=== PATIENT | male | born 1950 | race Caucasian/White ===

== ENCOUNTER 2018-10-31 09:29 | Day surgery (SDC) | payer MEDICARE, BC ==
[2018-10-27 16:06] VITALS: BMI 32.3
[~2018-10-31 09:29] MED LIST: LACTATED RINGERS 1,000 ML IV SCH; LIDOCAINE 1% 20 ML VIAL (10MG/ML) FOR IV START INTRADERMA PRN; MIDAZOLAM (PF) 2 MG/2 ML VIAL IV PRN
[2018-10-31 09:53] VITALS: RESP 16; TEMP 98.9
[2018-10-31 10:08] LABS: Glucose,Whole Blood 156 mg/dL (75-99)
[2018-10-31] MEDS ORDERED: PROPOFOL 10 MG/ML 20 ML VIAL IV ONE (10:46)
--- NOTE | 2018-10-31 11:18 | P.OP ---
Date of Procedure: 10/31/18 Preoperative Diagnosis: Screening Postoperative Diagnosis: Diverticulosis Colon polyps Procedure(s) Performed: Colonoscopy with snare polypectomy Surgeon: Ahsan Richardson Pathology: other (Colon polyps) Condition: stable Disposition: same day Indications for Procedure: Patient presents for colon cancer screening. He was explained risks, benefits and alternatives prior to attending the endoscopy suite. Operative Findings: Diverticulosis of sigmoid colon Colon polyp of the transverse colon and colon polyp of the descending colon Description of Procedure: The patient was brought into the endoscopy suite and placed in the left lateral decubitus position. Adequate sedation was achieved using conscious sedation. A digital rectal exam was performed, and mild internal hemorrhoids were palpated. An endoscope was in place in the rectum and advanced to the level of the cecum as identified by landmarks, including the appendiceal orifice and the ileocecal valve. The prep was good. The colon scope was then slowly withdrawn, examining for any mucosal abdomen pelvis. The cecum, ascending, transverse, descending and sigmoidal colon were visualized adequately. There were no inflammatory lesions noted throughout the colon. There were no obvious neoplastic lesions noted throughout the colon. There was notable colon polyps. There was a polyp noted in the transverse colon. Snare polypectomy was performed and the polyp was removed in its entirety and hemostasis was maintained. An additional polyp was noted in the descending colon. This was removed with snare polypectomy in its entirety. Hemostasis was maintained. There was also notable diverticulosis in the sigmoid colon. Retroflexion was performed in the rectum and internal hemorrhages were visible. Excess air was removed. The colonoscope was withdrawn and the procedure terminated. The patient was then transferred to post incision carried in stable condition. Repeat colonoscopy in 5 years.
[2018-10-31 11:33] VITALS: BP 162/80; PULSE 81
== END 2018-10-31 11:54 | disposition home or self-care (01) ==
LOC: ORWHC2ENDO 09:29
PROVIDERS: ATTEND Surgery
DX: Z12.11 Encounter for screening for malignant neoplasm of colon (principal); K63.5 Polyp of colon; K57.30 Diverticulosis of large intestine without perforation or abscess without bleeding; K64.8 Other hemorrhoids; M19.90 Unspecified osteoarthritis, unspecified site; E11.9 Type 2 diabetes mellitus without complications; I10 Essential (primary) hypertension; E78.5 Hyperlipidemia, unspecified; Z83.3 Family history of diabetes mellitus; Z87.891 Personal history of nicotine dependence; Z79.82 Long term (current) use of aspirin; Z79.899 Other long term (current) drug therapy; Z79.84 Long term (current) use of oral hypoglycemic drugs
CPT/HCPCS: 88305; 45385; J2704

== ENCOUNTER → 2023-02-02 | Outpatient (CLI) | payer MEDICARE ==
--- NOTE | 2023-02-04 20:33 | MR ---
EXAMINATION TYPE: MR Prostate wo/w con DATE OF EXAM: 02/02/2023 11:14 AM COMPARISON: None. CLINICAL INDICATION:Male, 72 years old with history of C61; TECHNIQUE: Multi-planar, multi-sequence imaging of the pelvis is performed prior to and following the uncomplicated administration of bolus intravenous gadolinium. CONTRAST: 9 Gadavist Interpretive Criteria: PI-RADS v2.1 SERUM PSA: 4.3 on 12/17/2022. 3.9 on 06/02/2022. SURGICAL PATHOLOGY: 02/01/2022 Positive biopsy involving the right lateral base. [place] 3+3 total 6 FINDINGS: Prostatic dimensions: 5.7 x 5.4 x 4.2 cm. Ellipsoid Volume:67.69 (PSA density=0.06 ng/mL/mL) CENTRAL GLAND (Central and Transition Zones/CZ+TZ): Left central gland area of low T2/high DWI/low ADC signal measuring 7 mm. There is arterial phase enh ancement of this region. PI-RADS 4 Hypertrophic nodules are seen within the central gland. PERIPHERAL ZONE (PZ): Left lateral peripheral zone focus of high DWI low ADC or T2 signal measuring 9 mm There is arterial phase enhancement of this region. PI-RADS 4. SEMINAL VESICLES (SV): Symmetric and unremarkable. PERIPROSTATIC TISSUES: Unremarkable. LYMPH NODES: No enlarged pelvic lymph node. REMAINING PELVIS: Trabeculated bladder wall likely secondary to chronic bladder outlet obstruction. No abnormal free or organized intrapelvic fluid collection. No pathologic bowel dilation or mural thickening. OSSEOUS STRUCTURES: No suspicious osseous abnormality. IMPRESSION: 1. PI-RADS 4 lesion left posterior lateral mid gland peripheral zone measuring 9 mm. 2. PI-RADS 4 lesion left central gland base/mid gland measuring 7 mm. 3. Moderate BPH, estimated gland volume 67.69 mL. 4. No suspicious osseous lesion. No lymphadenopathy. No evidence of prostate adenocarcinoma involving the periprostatic tissues.
== END | disposition home or self-care (01) ==
LOC: RADMRIMAIN 08:26
PROVIDERS: ATTEND Urology
DX: C61 Malignant neoplasm of prostate (principal)
CPT/HCPCS: 72197; A9585

== ENCOUNTER → 2023-03-11 | Outpatient (CLI) | payer MEDICARE ==
[2023-03-11 12:21] LABS: Basophils % (A) 1 %; Eosinophils # (A) 0.2 k/uL (0-0.7); Eosinophils % (A) 4 %; HCT 47.4 % (39.0-53.0); HGB 15.6 gm/dL (13.0-17.5); Lymphocytes # (A) 1.2 k/uL (1.0-4.8); Lymphocytes % (A) 21 %; MCH 32.7 pg (25.0-35.0); MCHC 32.8 g/dL (31.0-37.0); MCV 99.6 fL (80.0-100.0); Mean Platelet Volume 8.2; Monocytes # (A) 0.3 k/uL (0-1.0); Monocytes % (A) 6 %; Neutrophils # (A) 3.8 k/uL (1.3-7.7); Neutrophils % (A) 67 %; Platelet Count 146 k/uL (150-450); RBC 4.76 m/uL (4.30-5.90); RDW 12.9 % (11.5-15.5); WBC 5.7 k/uL (3.8-10.6)
[2023-03-11 12:36] LABS: African American GFR (CKD) 80 (>60 ml/min/1.73 sqM); Anion Gap 9 mmol/L; Blood Urea Nitrogen 23 mg/dL (9-20); Calcium 9.7 mg/dL (8.4-10.2); Carbon Dioxide 26 mmol/L (22-30); Chloride 107 mmol/L (98-107); Glucose 190 mg/dL (74-99); Non-African American GFR(CKD) 70 (>60 ml/min/1.73 sqM); Potassium 4.2 mmol/L (3.5-5.1); Sodium 142 mmol/L (137-145)
== END ==
LOC: PAT 11:25
PROVIDERS: ATTEND Urology
DX: Z01.818 Encounter for other preprocedural examination (principal); C61 Malignant neoplasm of prostate; Z87.891 Personal history of nicotine dependence
CPT/HCPCS: 36415; 80048; 85025

== ENCOUNTER 2023-03-17 10:40 | Day surgery (SDC) | payer MEDICARE ==
[2023-03-15 11:28] VITALS: BMI 28.4
--- NOTE | 2023-03-16 08:22 | P.GSHP ---
History of Present Illness H&P Date: 03/16/23 Chief Complaint: Prostate cancer The patient is a 72-year-old white male with a family history of prostate cancer. His PSA level in December 2021 was 4.50. He underwent a prostate ultrasound with biopsies, revealing a focus of [place] 6 adenocarcinoma in one of 12 biopsies. Alternative treatment options were reviewed, and the patient elected to proceed with active surveillance. His PSA level in November 2022 was 4.30. MRI of the prostate showed PI-RADS 4 lesions within the left central zone and left peripheral zone. He now comes for MRI fusion biopsies of the prostate. - Cardiovascular Cardiovascular: Reports high blood pressure - Genitourinary (Male) Genitourinary: Reports nocturia Past Medical History Past Medical History: Cancer, Diabetes Mellitus, Hyperlipidemia, Hypertension, Liver Disease, Osteoarthritis (OA) Additional Past Medical History / Comment(s): Current prostate cancer. Hx kidney stones, hx. hepatitis at 5 yrs old, "yellow jaundice." History of Any Multi-Drug Resistant Organisms: None Reported Past Surgical History: Adenoidectomy, Orthopedic Surgery, Tonsillectomy Additional Past Surgical History / Comment(s): Bileratal shoulder surgery, colonoscopy. Past Anesthesia/Blood Transfusion Reactions: No Reported Reaction Past Psychological History: No Psychological Hx Reported Smoking Status: Former smoker Past Alcohol Use History: Occasional Additional Past Alcohol Use History / Comment(s): Totally quit smoking 4 months ago, was only smoking 1-2 cigarettes per day before he quit, had smoked on & off since age 20, <1/2ppd. Past Drug Use History: None Reported - Past Family History Father Family Medical History: Cancer, Deep Vein Thrombosis (DVT) Additional Family Medical History / Comment(s): Lung cancer. Medications and Allergies Home Medications Medication Instructions Recorded Confirmed Type Aspirin 81 mg PO DAILY 10/27/18 03/15/23 History Enalapril Maleate [Vasotec] 10 mg PO QAM 10/27/18 03/15/23 History Pioglitazone [Actos] 15 mg PO DAILY 10/27/18 03/15/23 History metFORMIN HCL [Glucophage] 1,000 mg PO DAILY 10/27/18 03/15/23 History Empagliflozin [Jardiance] 25 mg PO DAILY 03/15/23 03/15/23 History Multivitamins, Thera [Multivitamin 1 tab PO Q48H 03/15/23 03/15/23 History (formulary)] Semaglutide [Ozempic] 0.5 mg SQ MO 03/15/23 03/15/23 History Simvastatin 40 mg PO DAILY 03/15/23 03/15/23 History Allergies Allergy/AdvReac Type Severity Reaction Status Date / Time No Known Allergies Allergy Verified 03/15/23 11:10 Surgical - Exam - General well developed, well nourished, no distress - Respiratory normal respiratory effort - Abdomen Abdomen: soft, non tender, no guarding, no rigid, no rebound - Genitourinary normal penis with no external lesions, testicles non-tender - Rectum Rectum: normal sphincter tone, no masses, other (Prostate moderately enlarged and smooth) - Psychiatric oriented to time, oriented to person, oriented to place, speech is normal, memory intact Assessment and Plan (1) Malignant neoplasm of prostate Status: Acute Code(s): C61 - MALIGNANT NEOPLASM OF PROSTATE SNOMED Code(s): 193158571 Plan: The patient will undergo MRI-Ultrasound fusion transrectal biopsies of the prostate. The procedure has been reviewed in detail with the patient. He has been made aware of potential risks, which include anesthesia, bleeding, and infection. He is also aware that a negative biopsy does not completely rule out prostate cancer.
[~2023-03-17 10:40] MED LIST changes: +GENTAMICIN 120 MG in SODIUM CHLORIDE 0.9% 100 ML IVPB PRN; -LACTATED RINGERS 1,000 ML IV SCH; -LIDOCAINE 1% 20 ML VIAL (10MG/ML) FOR IV START INTRADERMA PRN; -MIDAZOLAM (PF) 2 MG/2 ML VIAL IV PRN
[2023-03-17] MEDS ORDERED: LIDOCAINE 1% (10MG/ML) FOR IV START INTRADERMA PRN (11:54)
[2023-03-17] MEDS ORDERED: LACTATED RINGERS 1,000 ML IV SCH (11:54)
[2023-03-17 12:19] VITALS: TEMP 97
[2023-03-17 12:25] LABS: Glucose,Whole Blood 97 mg/dL (70-110)
[2023-03-17] MEDS ORDERED: PROPOFOL 10 MG/ML 20 ML VIAL IV ONE (13:50)
--- NOTE | 2023-03-17 14:13 | P.OP ---
Date of Procedure: 03/17/23 Preoperative Diagnosis: Adenocarcinoma of the prostate Postoperative Diagnosis: Same Procedure(s) Performed: MRI ultrasound-guided fusion biopsies of the prostate Anesthesia: MAC Surgeon: Ridge Goldman Estimated Blood Loss (ml): 5 IV fluids (ml): 100 Condition: stable Disposition: PACU Indications for Procedure: The patient is a 72-year-old white male with a family history of prostate cancer. His PSA level in December 2021 was 4.50. He underwent a prostate ultrasound with biopsies, revealing a focus of [place] 6 adenocarcinoma in one of 12 biopsies. Alternative treatment options were reviewed, and the patient elected to proceed with active surveillance. His PSA level in November 2022 was 4.30. MRI of the prostate showed PI-RADS 4 lesions within the left central zone and left peripheral zone. He now comes for MRI fusion biopsies of the prostate. Operative Findings: 12 systematic biopsies obtained in addition to biopsies of the target lesions. Description of Procedure: The patient was taken to the operating room and placed in the left lateral decubitus position. The Simple Admit transrectal ultrasound probe was placed intrarectally. It was then placed within the stand of the [employer] MRI/TRUS Fusion for Prostate Biopsy system. The prostate was imaged in both the axial and sagittal planes, revealing a prostate volume of 72 mL. Using the Biopty gun, 3 biopsies were obtained from each of 2 target lesions. The remaining 12 biopsies of the peripheral zone were obtained utilizing a standard template. Once the procedure was completed, the ultrasound probe was removed. The patient tolerated the procedure well was taken to the recovery room stable condition.
[2023-03-17 14:18] VITALS: RESP 16
[2023-03-17 15:06] VITALS: BP 135/68; PULSE 74
== END 2023-03-17 15:09 | disposition home or self-care (01) ==
LOC: OR 10:40
PROVIDERS: ATTEND Urology
DX: C61 Malignant neoplasm of prostate (principal); E11.9 Type 2 diabetes mellitus without complications; E78.5 Hyperlipidemia, unspecified; I10 Essential (primary) hypertension; M19.90 Unspecified osteoarthritis, unspecified site; Z80.42 Family history of malignant neoplasm of prostate; Z87.442 Personal history of urinary calculi; Z90.89 Acquired absence of other organs; Z87.891 Personal history of nicotine dependence; Z86.59 Personal history of other mental and behavioral disorders; Z80.1 Family history of malignant neoplasm of trachea, bronchus and lung; Z79.82 Long term (current) use of aspirin; Z79.84 Long term (current) use of oral hypoglycemic drugs; Z79.899 Other long term (current) drug therapy
CPT/HCPCS: 88305; 55700; J0690; J1580; J2704

== ENCOUNTER → 2023-05-16 | Outpatient (CLI) | payer MEDICARE ==
[2023-05-16 16:24] LABS: Blood Urea Nitrogen 20.4 mg/dL (9.0-27.0); Calcium 10.4 mg/dL (8.7-10.3); Carbon Dioxide 26.8 mmol/L (21.6-31.8); Chloride 103 mmol/L (96-109); Glucose 154 mg/dL (70-110); Potassium 5.2 mmol/L (3.5-5.5); Sodium 146 mmol/L (135-145)
[2023-05-16 16:49] LABS: Basophils # (A) 0.05 X 10*3/uL (0.00-0.10); Basophils % (A) 0.9 %; Eosinophils # (A) 0.15 X 10*3/uL (0.04-0.35); Eosinophils % (A) 2.7 %; HCT 49.6 % (39.6-50.0); HGB 15.7 d/dL (13.0-17.0); Lymphocytes # (A) 1.27 X 10*3/uL (0.90-5.00); Lymphocytes % (A) 22.8 %; MCH 31.7 pg (27.0-32.0); MCHC 31.7 d/dL (32.0-37.0); Mean Platelet Volume 10.6 FL (9.5-12.2); Monocytes # (A) 0.42 X 10*3/uL (0.20-1.00); Monocytes % (A) 7.6 %; NRBC Per 100 WBC 0 X 10*3/uL (0.00-0.01); Neutrophils # (A) 3.65 X 10*3/uL (1.80-7.70); Neutrophils % (A) 65.6 %; Platelet Count 167 X 10*3/uL (140-440); RBC 4.96 X 10*6/uL (4.40-5.60); RDW 13.2 % (11.5-14.5); WBC 5.56 X 10*3/uL (4.50-10.00)
== END | disposition home or self-care (01) ==
LOC: LABWHC1 11:37
PROVIDERS: ATTEND Urology
DX: Z01.812 Encounter for preprocedural laboratory examination (principal); C61 Malignant neoplasm of prostate
CPT/HCPCS: 36415; 80048; 85025

== ENCOUNTER 2023-05-19 12:46 | Day surgery (SDC) | payer MEDICARE ==
[2023-05-17 13:19] VITALS: BMI 28.4
--- NOTE | 2023-05-18 22:17 | P.GSHP ---
History of Present Illness H&P Date: 05/18/23 Chief Complaint: Prostate cancer The patient is a 72-year-old white male originally diagnosed with prostate cancer in January 2022. His PSA level at that time was 4.50, and 1 of 12 biopsies showed [place] 6 adenocarcinoma. He recently underwent MRI fusion biopsy. 2 biopsies showed [place] 7 (4+3) adenocarcinoma. I had a lengthy discussion with the patient regarding alternative treatment options. He has chosen to undergo IMRT rather than surgery. His Prolaris score is 4.5 He will undergo SpaceOAR implant to reduce the risk of rectal toxicity. - Cardiovascular Cardiovascular: Reports high blood pressure - Genitourinary (Male) Genitourinary: Reports nocturia Past Medical History Past Medical History: Cancer, Diabetes Mellitus, Hyperlipidemia, Hypertension, Liver Disease Additional Past Medical History / Comment(s): kidney stones, hx. hepatitis at 5 yrs old"yellow jaundice", PROSTATE CANCER History of Any Multi-Drug Resistant Organisms: None Reported Past Surgical History: Adenoidectomy, Orthopedic Surgery, Tonsillectomy Additional Past Surgical History / Comment(s): enoc shoulder surg., colonoscopy Past Anesthesia/Blood Transfusion Reactions: No Reported Reaction Smoking Status: Former smoker - Past Family History Father Family Medical History: Cancer Additional Family Medical History / Comment(s): PROSTATE AND LUNG Medications and Allergies Home Medications Medication Instructions Recorded Confirmed Type Aspirin 81 mg PO DAILY 10/27/18 05/17/23 History Enalapril Maleate [Vasotec] 10 mg PO QAM 10/27/18 05/17/23 History Pioglitazone [Actos] 15 mg PO DAILY 10/27/18 05/17/23 History metFORMIN HCL [Glucophage] 1,000 mg PO DAILY 10/27/18 05/17/23 History Empagliflozin [Jardiance] 25 mg PO DAILY 03/15/23 05/17/23 History Multivitamins, Thera [Multivitamin 1 tab PO Q48H 03/15/23 05/17/23 History (formulary)] Semaglutide [Ozempic] 0.5 mg SQ FR 03/15/23 05/17/23 History Simvastatin 40 mg PO DAILY 03/15/23 05/17/23 History Allergies Allergy/AdvReac Type Severity Reaction Status Date / Time No Known Allergies Allergy Verified 05/17/23 13:04 Surgical - Exam - General well developed, well nourished, no distress - Respiratory normal respiratory effort - Abdomen Abdomen: soft, non tender, no guarding, no rigid, no rebound - Genitourinary normal penis with no external lesions, testicles non-tender - Rectum Rectum: normal sphincter tone, no masses, other (Prostate moderately enlarged but smooth) - Psychiatric oriented to time, oriented to person, oriented to place, speech is normal, memory intact Assessment and Plan (1) Malignant neoplasm of prostate Status: Acute Code(s): C61 - MALIGNANT NEOPLASM OF PROSTATE SNOMED Code(s): 208814893 Plan: The SpaceOar implant has been reviewed in detail with the patient. He understands that the rationale for this is to create separation between the prostate and rectum, thus reducing the risk of radiation proctitis. The material begins to breakdown 12-13 weeks following implant, and is reabsorbed by the body. Risks include anesthesia, bleeding, infection, and perineal discomfort. He understands that if the rectal wall is perforated the procedure will need to be aborted.
[~2023-05-19 12:46] MED LIST changes: -GENTAMICIN 120 MG in SODIUM CHLORIDE 0.9% 100 ML IVPB PRN; +LACTATED RINGERS 1,000 ML IV SCH; +fentaNYL (PF) 50 MCG/ML 2 ML AMP IV PRN
[2023-05-19] MEDS ORDERED: LACTATED RINGERS 1,000 ML IV ONE (14:45)
[2023-05-19 15:03] VITALS: BP 131/69; PULSE 81; RESP 16; TEMP 97.5
== END 2023-05-19 15:10 | disposition home or self-care (01) ==
LOC: OR 12:46
PROVIDERS: ATTEND Urology
DX: C61 Malignant neoplasm of prostate (principal); E11.9 Type 2 diabetes mellitus without complications; E78.5 Hyperlipidemia, unspecified; Z79.84 Long term (current) use of oral hypoglycemic drugs; Z85.46 Personal history of malignant neoplasm of prostate; Z87.891 Personal history of nicotine dependence

== ENCOUNTER → 2023-06-14 | Outpatient (CLI) | payer MEDICARE ==
[2023-06-14 18:15] LABS: Basophils # (A) 0.07 X 10*3/uL (0.00-0.10); Basophils % (A) 1.1 %; Eosinophils # (A) 0.16 X 10*3/uL (0.04-0.35); Eosinophils % (A) 2.6 %; HCT 48.3 % (39.6-50.0); HGB 15.4 g/dL (13.0-17.0); Lymphocytes # (A) 1.36 X 10*3/uL (0.90-5.00); Lymphocytes % (A) 22.3 %; MCH 31.7 pg (27.0-32.0); MCHC 31.9 g/dL (32.0-37.0); MCV 99.4 FL (80.0-97.0); Mean Platelet Volume 10.1 FL (9.5-12.2); Monocytes # (A) 0.46 X 10*3/uL (0.20-1.00); Monocytes % (A) 7.6 %; NRBC Per 100 WBC 0 X 10*3/uL (0.00-0.01); Neutrophils # (A) 4.03 X 10*3/uL (1.80-7.70); Neutrophils % (A) 66.2 %; Platelet Count 159 X 10*3/uL (140-440); RBC 4.86 X 10*6/uL (4.40-5.60); RDW 13.2 % (11.5-14.5); WBC 6.09 X 10*3/uL (4.50-10.00)
[2023-06-14 20:25] LABS: Calcium 10.3 mg/dL (8.7-10.3); Carbon Dioxide 25.6 mmol/L (21.6-31.8); Chloride 104 mmol/L (96-109); Glucose 156 mg/dL (70-110); Potassium 4.3 mmol/L (3.5-5.5); Sodium 143 mmol/L (135-145)
== END | disposition home or self-care (01) ==
LOC: LABPAT 10:45
PROVIDERS: ATTEND Urology
DX: Z01.812 Encounter for preprocedural laboratory examination (principal); C61 Malignant neoplasm of prostate
CPT/HCPCS: 36415; 80048; 85025

== ENCOUNTER 2023-06-23 07:19 | Day surgery (SDC) | payer MEDICARE ==
[2023-06-17 11:02] VITALS: BMI 28.4
--- NOTE | 2023-06-22 19:56 | P.GSHP ---
History of Present Illness H&P Date: 06/22/23 Chief Complaint: Prostate cancer The patient is a 73-year-old white male originally diagnosed with prostate cancer in January 2022. His PSA level at that time was 4.50, and 1 of 12 biopsies showed [place] 6 adenocarcinoma. He recently underwent MRI fusion biopsy. 2 biopsies showed [place] 7 (4+3) adenocarcinoma. I had a lengthy discussion with the patient regarding alternative treatment options. He has chosen to undergo IMRT rather than surgery. His Prolaris score is 4.5 He will undergo SpaceOAR implant to reduce the risk of rectal toxicity. - Cardiovascular Cardiovascular: Reports high blood pressure - Genitourinary (Male) Genitourinary: Reports nocturia Past Medical History Past Medical History: Cancer, Diabetes Mellitus, Hyperlipidemia, Hypertension, Liver Disease Additional Past Medical History / Comment(s): kidney stones, hx. hepatitis at 5 yrs old"yellow jaundice", prostate cancer History of Any Multi-Drug Resistant Organisms: None Reported Past Surgical History: Adenoidectomy, Orthopedic Surgery, Tonsillectomy Additional Past Surgical History / Comment(s): enoc shoulder surg., colonoscopy, prostate bx Past Anesthesia/Blood Transfusion Reactions: No Reported Reaction Past Psychological History: No Psychological Hx Reported Smoking Status: Former smoker Past Alcohol Use History: Occasional Additional Past Alcohol Use History / Comment(s): quit smoking 6 yrs ago, smoked on & off since age 20, <1/2ppd Past Drug Use History: None Reported Medications and Allergies Home Medications Medication Instructions Recorded Confirmed Type Aspirin 81 mg PO DAILY 10/27/18 06/17/23 History Enalapril Maleate [Vasotec] 10 mg PO QAM 10/27/18 06/17/23 History Pioglitazone [Actos] 15 mg PO DAILY 10/27/18 06/17/23 History metFORMIN HCL [Glucophage] 1,000 mg PO DAILY 10/27/18 06/17/23 History Empagliflozin [Jardiance] 25 mg PO DAILY 03/15/23 06/17/23 History Multivitamins, Thera [Multivitamin 1 tab PO Q48H 03/15/23 06/17/23 History (formulary)] Semaglutide [Ozempic] 0.5 mg SQ FR 03/15/23 06/17/23 History Simvastatin 40 mg PO DAILY 03/15/23 06/17/23 History Allergies Allergy/AdvReac Type Severity Reaction Status Date / Time No Known Allergies Allergy Verified 06/17/23 10:32 Surgical - Exam - General well developed, well nourished, no distress - Respiratory normal respiratory effort - Abdomen Abdomen: soft, non tender, no guarding, no rigid, no rebound - Genitourinary normal penis with no external lesions, testicles non-tender - Rectum Rectum: normal sphincter tone, no masses, other (Prostate moderately enlarged and smooth) - Psychiatric oriented to time, oriented to person, oriented to place, speech is normal, memory intact Assessment and Plan (1) Malignant neoplasm of prostate Status: Acute Code(s): C61 - MALIGNANT NEOPLASM OF PROSTATE SNOMED Code(s): 790746966 Plan: The SpaceOar implant has been reviewed in detail with the patient. He understands that the rationale for this is to create separation between the prostate and rectum, thus reducing the risk of radiation proctitis. The material begins to breakdown 12-13 weeks following implant, and is reabsorbed by the body. Risks include anesthesia, bleeding, infection, and perineal discomfort. He understands that if the rectal wall is perforated the procedure will need to be aborted.
[~2023-06-23 07:19] MED LIST changes: +HYDROmorphone 0.5 MG/0.5 ML SYRINGE IVP PRN; +ONDANSETRON 4 MG/2 ML VIAL IVP ONE; -fentaNYL (PF) 50 MCG/ML 2 ML AMP IV PRN
[2023-06-23 07:51] LABS: Glucose,Whole Blood 120 mg/dL (70-110)
[2023-06-23 08:04] VITALS: RESP 16; TEMP 97.6
[2023-06-23] MEDS ORDERED: MIDAZOLAM 2 MG/2 ML VIAL ONE (08:35)
[2023-06-23] MEDS ORDERED: KETAMINE HCL IN 0.9 % NACL 50 MG/5 ML SYRINGE ONE (08:35)
[2023-06-23] MEDS ORDERED: fentaNYL (PF) 50 MCG/ML 2 ML AMP ONE (08:35)
[2023-06-23] MEDS ORDERED: PROPOFOL 10 MG/ML 20 ML VIAL IV ONE (08:35)
--- NOTE | 2023-06-23 09:02 | P.OP ---
Date of Procedure: 06/23/23 Preoperative Diagnosis: Adenocarcinoma of the prostate Postoperative Diagnosis: Same Procedure(s) Performed: SpaceOAR Implant Anesthesia: MAC Surgeon: Ridge Goldman Estimated Blood Loss (ml): 5 IV fluids (ml): 300 Pathology: none sent Condition: stable Disposition: PACU Indications for Procedure: The patient is a 73-year-old white male originally diagnosed with prostate cancer in January 2022. His PSA level at that time was 4.50, and 1 of 12 biopsies showed [place] 6 adenocarcinoma. He recently underwent MRI fusion biopsy. 2 biopsies showed [place] 7 (4+3) adenocarcinoma. I had a lengthy discussion with the patient regarding alternative treatment options. He has chosen to undergo IMRT rather than surgery. His Prolaris score is 4.5 He will undergo SpaceOAR implant to reduce the risk of rectal toxicity. Operative Findings: 13 mm separation created between prostate and rectum. Description of Procedure: The patient was taken to the operating room and placed in the dorsolithotomy pos ition, with his legs supported in Osmel stirrups. The external genitalia was prepped and draped sterilely. The Bruel and Kjaer transrectal ultrasound probe was placed intrarectally. The prostate was imaged. The probe was then placed within the stabilizing stand. A spinal needle was advanced under ultrasonic guidance to the level of the urogenital diaphragm, and lidocaine was used to infiltrate the tissues as the needle was withdrawn. Next, the SpaceOAR needle was passed through the midline of the perineum, 1-2 cm anterior to the anal opening. The needle was slowly advanced under ultrasonic guidance until the needle tip was located within the fat plane between the prostate and rectum, at the level of the mid prostate gland. The needle was confirmed to be midline on the axial imaging. A small amount of normal saline was injected for hydrodissection. Next, the SpaceOAR components were mixed and loaded into the Y connector per protocol. The Y connector was then connected to the needle, and the components were injected slowly over a course of approximately 12 seconds. A total of 10 ml was injected. Significant distance was created between the prostate and rectum, as desired. It should be noted that at no point was there any concern of rectal perforation. The needle was withdrawn, as well as the transrectal ultrasound probe, and the procedure was terminated. The patient tolerated the procedure well and was taken to the recovery room in stable condition.
[2023-06-23 09:38] VITALS: BP 129/68; PULSE 86
== END 2023-06-23 10:09 | disposition home or self-care (01) ==
LOC: OR 07:19
PROVIDERS: ATTEND Urology
DX: C61 Malignant neoplasm of prostate (principal); K21.9 Gastro-esophageal reflux disease without esophagitis; I10 Essential (primary) hypertension; Z86.73 Personal history of transient ischemic attack (TIA), and cerebral infarction without residual deficits; Z85.46 Personal history of malignant neoplasm of prostate; Z79.899 Other long term (current) drug therapy
CPT/HCPCS: 55874; C1889; J2250; J0690; J3010; J2704

== ENCOUNTER → 2023-09-23 | Outpatient (CLI) | payer MEDICARE ==
[2023-09-23 16:16] LABS: ALT 19 U/L (10-49); AST 17 U/L (14-35); Chol/HDL Ratio 2.62 Ratio; Prostate Specific Antigen 0.02 ng/mL (0.000-6.500); VLDL Calculation 15.44 mg/dL (5.00-40.00)
== END | disposition home or self-care (01) ==
LOC: LABWHC1 08:59
PROVIDERS: ATTEND Internal Medicine Interventional Cardiology
DX: E78.2 Mixed hyperlipidemia (principal); C61 Malignant neoplasm of prostate; Z80.42 Family history of malignant neoplasm of prostate
CPT/HCPCS: 36415; 80061; 84153; 84450; 84460

== ENCOUNTER → 2024-03-28 | Outpatient (CLI) | payer MEDICARE ==
[2024-03-28 15:56] LABS: Chol/HDL Ratio 2.38 Ratio; VLDL Calculation 13.66 mg/dL (5.00-40.00)
[2024-03-28 15:57] LABS: ALT 20 U/L (10-49); AST 17 U/L (14-35); Albumin 4.6 g/dL (3.8-4.9); Albumin/Globulin Ratio 1.92 Ratio (1.60-3.17); Alkaline Phosphatase 61 U/L (41-126); BUN/Creat Ratio 21.42 Ratio (12.00-20.00); Blood Urea Nitrogen 25.7 mg/dL (9.0-27.0); Calcium 9.9 mg/dL (8.7-10.3); Carbon Dioxide 24.1 mmol/L (21.6-31.8); Chloride 107 mmol/L (96-109); Globulin 2.4 g/dL (1.6-3.3); Glucose 117 mg/dL (70-110); LDL Cholesterol,Calculated 73.3 mg/dL (0.0-131.0); Potassium 4.2 mmol/L (3.5-5.5); Prostate Specific Antigen 0.08 ng/mL (0.000-6.500); Sodium 144 mmol/L (135-145); Total Bilirubin 0.7 mg/dL (0.3-1.2)
== END | disposition home or self-care (01) ==
LOC: LABWHC1 08:43
PROVIDERS: ATTEND Radiology Radiation Oncology
DX: I10 Essential (primary) hypertension (principal); E78.2 Mixed hyperlipidemia; C61 Malignant neoplasm of prostate; Z80.41 Family history of malignant neoplasm of ovary
CPT/HCPCS: 36415; 80053; 80061; 84153

== ENCOUNTER → 2024-07-19 | Outpatient (CLI) | payer MEDICARE ==
--- NOTE | 2024-07-19 12:48 | CTL ---
EXAMINATION TYPE: CT Low Dose Lung DATE OF EXAM ORDERED: 07/19/2024 COMPARISON: None CLINICAL INDICATION: Male, 74 years old with history of Z12.2 lung screening; PHH, former tobacco use r, Lung cancer screening, History of Smoking/tobacco use. TECHNIQUE: Low dose computed tomography scan was performed through the chest at 1 mm thick sections a nd reconstructed images in multiple planes at 1 mm and [address] DLP: 128.[address] CTDI: 3.3 mGy Automated exposure control for dose reduction was used. CT DIAGNOSTIC QUALITY: Satisfactory FINDINGS: There are 2 to 3 mm groundglass nodules in the right upper lobe and right middle lobe. There is no airspace consolidation or abnormal interstitial density. There is no pleural effusion, pleural thickening or pneumothorax. The great vessels chest are normal and there is no mediastinal, hilar or axillary adenopathy. The heart is not enlarged. Limited scanning of the upper abdomen reveals a large calcified gallstone. No focal osseous lesions are seen.. IMPRESSION: 1. Lung RADS category 2 benign. Continue routine screening at yearly intervals. 2. No acute cardiopul monary disease. 3. Cholelithiasis. [facility], , 07/19/2024 12:45 PM
== END | disposition home or self-care (01) ==
LOC: RADCTMAIN 11:35
PROVIDERS: ATTEND Internal Medicine
DX: Z12.2 Encounter for screening for malignant neoplasm of respiratory organs (principal); Z87.891 Personal history of nicotine dependence; K80.20 Calculus of gallbladder without cholecystitis without obstruction
CPT/HCPCS: 71271

== ENCOUNTER 2024-07-31 06:02 | Day surgery (SDC) | payer MEDICARE ==
[2024-07-31] MEDS ORDERED: LACTATED RINGERS 1,000 ML IV SCH (06:03)
[2024-07-31] MEDS ORDERED: LIDOCAINE 1% (10MG/ML) FOR IV START INTRADERMA PRN (06:03)
[2024-07-31 06:54] LABS: Glucose,Whole Blood 89 mg/dL (70-110)
[2024-07-31 06:56] VITALS: TEMP 98
[2024-07-31] MEDS: IV FLUID CONTINUATION 1,000 ML IV ONE (06:56)
[2024-07-31] MEDS ORDERED: PROPOFOL 10 MG/ML 20 ML VIAL IV ONE (07:00)
[2024-07-31] MEDS ORDERED: SODIUM CHLORIDE 0.9% 1,000 ML IV SCH (07:00)
--- NOTE | 2024-07-31 07:17 | P.PCN ---
Date of Procedure: 07/31/24 Procedure(s) Performed: BRIEF HISTORY: Patient is a 74-year-old pleasant white male scheduled for an elective colonoscopy as a part of evaluation for history of colon polyps. Last colonoscopy was 5 years ago. PROCEDURE PERFORMED: Colonoscopy with biopsy and snare polypectomy. PREOPERATIVE DIAGNOSIS: History of colon polyps. IV sedation per Anesthesia. PROCEDURE: After informed consent was obtained, the patient, was brought into the endoscopy unit. IV sedation was administered by Anesthesia under continuous monitoring. Digital rectal examination was normal. Initially the Olympus CF-160 flexible video colonoscope was then inserted in the rectum, gradually advanced into the cecum without any difficulty. Careful examination was performed as the scope was gradually being withdrawn. Ileocecal valve and the appendiceal orifice were visualized and appeared normal. Prep was excellent. Mucosa of the cecum had a 3 mm polyp that was removed by cold biopsy. In the transverse colon there was a 1.2 cm polyp removed by hot snare polypectomy. Rest of the, ascending colon, transverse colon, descending colon, sigmoid colon, and rectum appeared normal. Scattered left-sided diverticulosis retroflexion was performed in the rectum and no lesions were seen. The patient tolerated the procedure well. IMPRESSION: 3 mm cecal polyp status post cold biopsy 1.2 cm transverse colon polyp status post hot snare polypectomy Scattered sigmoid diverticulosis RECOMMENDATIONS: Findings of this examination were discussed with the patient as well as his family. He was advised to follow-up with the biopsy results. If the biopsy reveals adenoma he can have repeat colonoscopy in 3 years.
[2024-07-31 07:22] VITALS: PULSE 94; RESP 14
[2024-07-31 07:40] VITALS: BP 111/61
== END 2024-07-31 07:55 | disposition home or self-care (01) ==
LOC: ORWHC2ENDO 06:02
PROVIDERS: ATTEND Internal Medicine Gastroenterology
DX: D12.0 Benign neoplasm of cecum (principal); K57.30 Diverticulosis of large intestine without perforation or abscess without bleeding; C61 Malignant neoplasm of prostate; B19.10 Unspecified viral hepatitis B without hepatic coma; I10 Essential (primary) hypertension; E78.5 Hyperlipidemia, unspecified; E11.9 Type 2 diabetes mellitus without complications; Z79.82 Long term (current) use of aspirin; Z79.899 Other long term (current) drug therapy
CPT/HCPCS: 45380; 45385; J2704; 88305

== ENCOUNTER → 2024-09-21 | Outpatient (CLI) | payer MEDICARE | END | disposition home or self-care (01) | LOC: LABWHC1 12:29 | PROVIDERS: ATTEND Radiology Radiation Oncology | DX: C61 Malignant neoplasm of prostate (principal); Z80.42 Family history of malignant neoplasm of prostate | CPT/HCPCS: 36415; 84153 ==